=== PATIENT | female | born 1995 | race African-American/Black ===

== ENCOUNTER 2016-11-25 13:50 | Emergency (ER) | payer OTHER ==
[~2016-11-25] VITALS: Ht 167.6 cm; Wt 67.0 kg
[2016-11-25 14:10] VITALS: BP 106/69
[2016-11-25 15:55] LABS: CLARITY URINE CLEAR (CLEAR); COLOR URINE YELLOW (YELLOW); GLUCOSE URINE NEGATIVE (NEGATIVE); KETONES URINE NEGATIVE (NEGATIVE); LEUKOCYTE ESTERASE URINE TRACE (NEGATIVE); NITRITE URINE NEGATIVE (NEGATIVE); OCCULT BLOOD URINE NEGATIVE (NEGATIVE); PH URINE 7.5 (4.5-8.0); PROTEIN URINE TRACE (NEGATIVE); SPECIFIC GRAVITY URINE 1.022 (1.005-1.030); UROBILINOGEN URINE 0.2 E.U./dL (0.2-1.0)
[2016-11-25 16:16] LABS: RBC URINE 0-2 /hpf (0-2); SQUAMOUS EPITHELIAL CELL URINE FEW /lpf (RARE/1+)
[2016-11-25 16:37] LABS: MUCUS URINE 1+ /lpf (< = 2+)
[2016-11-25 16:38] LABS: BACTERIA URINE 1+
[2016-11-25] MEDS ORDERED: CEFTRIAXONE SODIUM 250 MG/VIAL IM ONE (17:00)
[2016-11-25] MEDS ORDERED: AZITHROMYCIN 500 MG TABLET PO ONE (17:00)
[2016-11-25] MEDS ORDERED: LIDOCAINE HCL 1% 20ML VIAL (Pyxis) INJ INFIL ONE (17:00)
== END 2016-11-25 17:22 | disposition home or self-care (01) ==
LOC: ER 13:50
DX: N76.0 Acute vaginitis (principal); Z88.1 Allergy status to other antibiotic agents; A64 Unspecified sexually transmitted disease; N39.0 Urinary tract infection, site not specified
CPT/HCPCS: 81001; 81025; 87210; 96372; 99284; J0696; J3490; Z7610

== ENCOUNTER 2017-06-09 13:44 | Emergency (ER) | payer OTHER ==
[~2017-06-09] VITALS: Ht 167.6 cm; Wt 67.0 kg
[2017-06-09 14:03] VITALS: BP 124/67
== END 2017-06-09 18:27 | disposition left against medical advice (07) ==
LOC: ER 14:25
DX: Z53.21 Procedure and treatment not carried out due to patient leaving prior to being seen by health care provider (principal)

== ENCOUNTER 2021-09-29 14:55 | Emergency (ER) | payer SELFPAY ==
[~2021-09-29] VITALS: Ht 165.1 cm; Wt 75.0 kg
[2021-09-29 15:27] VITALS: BP_SYST 110
== END 2021-09-29 15:35 | disposition left against medical advice (07) ==
LOC: ER 15:31
DX: Z53.21 Procedure and treatment not carried out due to patient leaving prior to being seen by health care provider (principal)